=== PATIENT | male | born 2000 | race Caucasian/White ===

== ENCOUNTER 2020-08-21 13:40 | Emergency (ER) | payer OTHER ==
[2020-08-21] MEDS ORDERED: OXYCODONE-ACETAMINOPHEN 5-325 MG TABLET PO ONE (13:50)
[2020-08-21] MEDS ORDERED: IBUPROFEN 800 MG TABLET PO ONE (13:50)
--- NOTE | 2020-08-21 13:51 | ER Document Report ---
HPI - HPI Time Seen by Provider: 08/21/20 13:46 Notes: 20-year-old male patient presenting to the emergency department chief complaint of right ankle pain. Patient reports he was standing on a 5 gallon bucket when he fell and rolled his ankle. He reports this occurred just prior to arrival. Denies any history of previous trauma to this area. Has not taken any medication for his symptoms. - ROS Systems Reviewed and Negative: Yes All other systems reviewed and negative - MUSCULOSKELETAL Musculoskeletal: REPORTS: Extremity pain Past Medical History - General Information source: Patient - Social History Smoking Status: Never Smoker Frequency of alcohol use: None Family History: None - Medical History Medical History: Negative Renal/ Medical History: Denies: Hx Peritoneal Dialysis Vertical Provider Document - CONSTITUTIONAL Notes: PHYSICAL EXAMINATION: GENERAL: Well-appearing, well-nourished and in no acute distress. HEAD: Atraumatic, normocephalic. EYES: Pupils equal round extraocular movements intact, conjunctiva are normal. ENT: Nares patent NECK: Normal range of motion LUNGS: No respiratory distress Musculoskeletal: Limited range of motion to right ankle secondary to pain, swelling noted on the lateral aspect. Strong dorsalis pedis pulse, cap refill less than 3 seconds. NEUROLOGICAL: Normal speech. PSYCH: Normal mood, normal affect. SKIN: Warm, Dry, normal turgor, no rashes or lesions noted. - INFECTION CONTROL TRAVEL OUTSIDE OF THE [place] IN LAST 30 DAYS: No Course - Re-evaluation Re-evalutation: Ankle X-Ray 08/21/20 13:50 IMPRESSION: Soft tissue swelling about the ankle without definitive acute bony abnormality. - Vital Signs Vital signs: Temp Pulse Resp BP Pulse Ox 98.4 F 95 18 138/83 H 99 08/21/20 13:47 08/21/20 13:47 08/21/20 13:47 08/21/20 13:47 08/21/20 13:47 - Laboratory Results Critical Laboratory Results Reviewed: No Critical Results - Radiology Results Critical Radiology Results Reviewed: No Critical Results Procedures - Immobilization right ankle Pre-Proc Neuro Vasc Exam: Normal Immobilizer type: Ankle stirrup Performed by: PCT Post-Proc Neuro Vasc Exam: Normal Discharge - Discharge Clinical Impression: Right ankle sprain Qualifiers: Encounter type: initial encounter Involved ligament of ankle: unspecified ligament Qualified Code(s): S93.401A - Sprain of unspecified ligament of right ankle, initial encounter Condition: Stable Disposition: HOME, SELF-CARE Instructions: Ankle Stirrup Splint ([facility]), Use of Crutches ([facility]), Ice & Elevation ([facility]), Sprained Ankle ([facility]) Additional Instructions: X-rays today showed no fracture or dislocation of the bones. You have likely sprained your ankle. Please use the ankle stirrup splint, use crutches. Ice and elevate as outlined in this discharge packet. Follow-up with your [facility] in 2 to 3 days. I have given you the phone number for an outpatient orthopedic clinic in case your pain persists. Forms: Return to Work Referrals: JUANCHO POWELL JR, DO [ACTIVE PROVISIONAL STAFF] - Follow up as needed
--- NOTE | 2020-08-21 14:24 | RADIOLOGY REPORT (SQ) ---
EXAM DESCRIPTION: ANKLE RIGHT COMPLETE IMAGES COMPLETED DATE/TIME: 08/21/2020 2:04 pm REASON FOR STUDY: rolled ankle/fall COMPARISON: None. NUMBER OF VIEWS: Three views. TECHNIQUE: AP, lateral, and oblique radiographic images acquired of the right ankle. LIMITATIONS: None. FINDINGS: MINERALIZATION: Normal. BONES: No definite acute fracture. No discrete osseous lesions. Punctate calcific density along the lateral midfoot, possibly small os peroneum. JOINTS: No effusions. SOFT TISSUES: Soft tissue swelling about the ankle. OTHER: No other significant finding. IMPRESSION: Soft tissue swelling about the ankle without definitive acute bony abnormality. TECHNICAL DOCUMENTATION: JOB ID: [id number] 2010 [employer] All Rights Reserved Reading location - IP/workstation name: [email or web address]
[2020-08-21] MEDS ORDERED: HYDROCODONE/ACETAMINOPHEN 5-325 MG (6 TAB/ER DISP) PO PRN (14:42)
[2020-08-21 15:30] VITALS: BP 120/68
== END 2020-08-21 15:29 | disposition home or self-care (01) ==
LOC: ER 13:40
DX: S93.401A Sprain of unspecified ligament of right ankle, initial encounter (principal); W17.89XA Other fall from one level to another, initial encounter; Y93.89 Activity, other specified; Y92.009 Unspecified place in unspecified non-institutional (private) residence as the place of occurrence of the external cause
CPT/HCPCS: 99283